=== PATIENT | male | born 1965 | race Caucasian/White ===

== ENCOUNTER 2025-09-04 09:55 | Day surgery (SDC) | payer OTHER, SELFPAY ==
[2025-09-04 10:05] VITALS: BP 143/87; PULSE 67; RESP 16; TEMP 36.2; O2SAT 98
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
[2025-09-04 10:43] VITALS: BMI 25.4
--- NOTE | 2025-09-04 11:23 | BOWEL_PTH ---
PATIENT: Bob Morales LOC: [facility] U#:[id number] AGE/SX: 60/M ROOM: RE09/04/[address]: Gloria Flores : 1965 BED: DIS: 09/04/2025 SPEC #: [id number] RECD: 09/04/25 12:56 STATUS: KIRSTEN REQ #: [id number] MARC: 09/04/25 11:[address]: Gloria Flores DEPT: Surgical Specimen RECD BY: Tala Jin ENTERED: 09/04/25 12:57 SP TYPE: Bowel OTHR DR: Ovi Cam, ALEXIS Tissues: 1 - BIOPSY BOWEL Procedures: GROSS AND MICRO LEVEL 4 Comments: [id number]
[2025-09-04] MEDS: Lactated Ringers 1,000 ML 80 ML IV (11:29)
[2025-09-04 11:32] VITALS: BP 121/82; PULSE 61; RESP 16; TEMP 36.4; O2SAT 100
--- NOTE | 2025-09-04 11:35 | W.PM.DSUDISC ---
Date of service: 09/04/25 Discharge Plan Disposition Patient Disposition: Home Condition: Good Discharge Details Reason For Visit: History of colon polyps Attending Provider: Gloria Flores Primary Care Provider: Ovi Cam Recommendations for Follow Up Recommended tests to be ordered by follow up provider: Follow up pathology Home Meds and New Rx's Prescriptions: Continued sildenafil [Viagra] 50 mg tablet 50 mg PO DAILY PRN Rx Instructions: administer 30 minutes to 4 hours before activity amlodipine 10 mg tablet 10 mg PO DAILY Discontinued bisacodyl [Dulcolax (bisacodyl)] 5 mg tablet,delayed release (DR/EC) 5 mg PO ONCE Qty: 4 0RF Rx Instructions: Take per colonoscopy instructions provided by ordering providers office polyethylene glycol 3350 17 gram/dose powder 17 g PO ONCE Qty: 238 0RF Rx Instructions: Take per colonoscopy instructions provided by ordering providers office Discharge Instructions Instructions: Colon polyps Additional Instructions: Your colonoscopy went well today. You did have 1 polyp which was removed and will be sent to pathology. When we get these pathology results back we will contact you regarding when to have a repeat colonoscopy. If you have any further questions or concerns please contact the general surgery office. 1. If tolerated, consume a soft, low fiber diet for 1-2 days. 2[address] Do not drive, drink alcohol, operate machinery, make critical decisions, or do activities that require coordination or balance for 24 hours. 3. Because air was put into your colon during the procedure, expelling air from your rectum (passing gas or farting) is normal. 4. You may not have a bowel movement for 1-3 days because of the colonoscopy prep. This is normal. 5. Go directly to the emergency room if you notice any of the following: Develop chills (warm to touch), or if you have a thermometer and your temperature is above 101 Difficulty breathing or difficultly swallowing Persistent vomiting Severe abdominal pain, other than gas cramps Severe chest pain Black, tarry stools Any bleeding ? exceeding one tablespoon 6. Call your physician if the site where your intravenous was started becomes red, swollen, painful, and warm to touch. 7. Your physician has reviewed your pre-procedure medications. Please continue to take those medications as previously ordered. You will be given specific information/education regarding any changes to your medications before leaving. Activity:: Activity as Tolerated Diet:: As Tolerated Discharge Orders Discharge Orders: Discharge Order (Routine); Ordered 09/04/25 Ordered By: Gloria Flores
--- NOTE | 2025-09-04 11:37 | W.COLOREPORT ---
Date of service: 09/04/25 Time of Service: 11:37 Colonoscopy Report Date of procedure: 09/04/25 Pre-op diagnosis general: History of colon polyps Post-op diagnosis procedure note: same Procedure: Colonoscopy with polypectomy Surgeon: Gloria Flores Anesthesia Type: General:No Airway Estimated blood loss (mL): 1 Pathology: other (Rectal polyp ) Complications: None Disposition: PACU Indications: Patient is a 60-year-old male who presents for repeat colonoscopy given personal history of polyps. He has no concerning symptoms at this time. Prep: Miralax/Dulcolax Procedure Start Time: :01 Procedure End Time: : Retraction Time: 14 Findings: Colonoscopy performed without difficulty. One rectal polyp identified which was removed with cold forceps. Procedure Description: The patient was brought to the endoscopy suite and placed in the left lateral decubitus position. After induction of IV sedation, a digital rectal exam was performed.. Digital exam was normal. The colonoscope was then passed to the cecum without difficulty. Cecal intubation was confirmed by the identification of the appendiceal orifice and the ileocecal valve. Upon withdrawing the colonoscope, all mucosal surfaces were inspected. The prep was noted to be adequate. In the rectum there was a small polyp, which was removed using cold forceps in its entirety. Specimen was retrieved for pathological analysis. There was no other evidence of mucosal abnormality, polyp or cancer. Retroflexion in the rectum was unremarkable.The patient tolerated the procedure well with no complications. Postoperatively, the patient was transferred to the recovery room in stable condition. [place] Bowel Prep [place] Bowel Prep Right Colon: 3 Left Colon: 3 Transverse Colon: 3 Total Score: 9
[2025-09-04 11:50] VITALS: BP 136/85; PULSE 66; RESP 16; TEMP 36.2; O2SAT 98
--- NOTE | 2025-09-04 12:30 | W.ANESPOSTOP ---
Postoperative Evaluation Date, Time and Location Date Performed: 09/04/25 Time Performed: 11:46 Patient Location: Day Surgery Unit Vital Signs Most Recent Imported Vital Signs: Most Recent Vital Signs Temp Pulse Resp BP Pulse Ox 36.2 C L 66 16 136/85 98 09/04/25 11:50 09/04/25 11:50 09/04/25 11:50 09/04/25 11:50 09/04/25 11:50 Pain Score Most Recent Pain Score: Most Recent Pain Score Pain Level 0 09/04/25 11:50 Assessment Mental Status: Awake (Alert & Oriented to Patient Baseline) Airway and Respiratory Function: Patent airway with normal (patient baseline) respiratory exam Cardiovascular Function: Hemodynamically Stable Hydration Status: Adequately Hydrated Nausea & Vomiting: No Nausea or Vomiting Pain: Pt. Denies Any Pain Peripheral Nerve Block: Patient did not receive a nerve block
== END 2025-09-04 12:00 | disposition home or self-care (01) ==
PROVIDERS: Visit Provider Student in an Organized Health Care Education/Training Program
PROC: 0DJD8ZZ Inspection of Lower Intestinal Tract, Via Natural or Artificial Opening Endoscopic (ICD-10-PCS; CPT 45378; principal; 2025-09-04 11:45)
DX: Z12.11 Encounter for screening for malignant neoplasm of colon (principal); D12.8 Benign neoplasm of rectum
CPT/HCPCS: 45380; 88305; J2704